=== PATIENT | female | born 1935 | race Caucasian/White ===

== ENCOUNTER 2016-09-26 00:21 | Inpatient (IN) | payer MEDICAID, OTHER ==
--- NOTE | 2016-09-26 00:33 | CPEKG ---
Heart Rate: 70 RR Interval: 857 P-R Interval: 156 QRSD Interval: 84 QT Interval: 396 QTC Interval: 428 QRS [place]: -1 T Wave [place]: 56 EKG Severity - ABNORMAL ECG - EKG Impression: ATRIAL-PACED RHYTHM Electronically Signed By: Tita gNuyen 26-Sep-2016 00:53:17
--- NOTE | 2016-09-26 00:34 | EDPHY ---
H & P Time Seen by Provider: 09/26/16 00:25 HPI/ROS: HPI The patient presents brought in by ambulance for chest pain which began at approximately 10:30 p.m. tonight while sitting after she drank some eat juice. The pain is described as a pressure sensation that she 1st felt in both of her arms, then her back, that her jaw, then her left chest. The pain has been constant and is moderate in severity. She has no associated shortness of breath , nausea, vomiting, diaphoresis or dizziness. She did take full-dose aspirin prior to arrival. She received a dose of nitroglycerin which did not affect her pain. She was admitted to the hospital in September of 2015 for jaw pain and paroxysmal atrial fibrillation. She had a normal evaluation then. Her last provocative testing was an exercise stress test performed in July of 2015 which was normal. REVIEW OF SYSTEMS Constitutional: No fever, no chills. Eyes: No discharge. ENT: No sore throat. Cardiovascular: No chest pain, no palpitations. Respiratory: No cough, no shortness of breath. Gastrointestinal: No abdominal pain, no vomiting. Genitourinary: No hematuria. Musculoskeletal: No back pain. Skin: No rashes. Neurological: No headache. PMHx: Paroxysmal atrial fibrillation, hypertension, pacer in place, not on any medication currently. Soc Hx: Lives at home, increased social stressors as she is trying to help her daughter get on medicaid PHYSICAL General Appearance: Alert, no distress Eyes: Pupils equal and round no pallor or injection ENT, Mouth: Mucous membranes moist Respiratory: There are no retractions, lungs are clear to auscultation Cardiovascular: Regular rate and rhythm Gastrointestinal: Abdomen is soft and non-tender, no masses, bowel sounds normal Neurological: A&O, moves all extremities Skin: Warm and dry, no rashes Musculoskeletal: Neck is supple non tender Extremities: symmetrical, full range of motion Psychiatric: Patient is oriented X 3, there is no agitation Source: Patient, EMS Exam Limitations: No limitations - Medical/Surgical History Hx Asthma: Yes Hx Chronic Respiratory Disease: No Hx Diabetes: No Hx Cardiac Disease: Yes Hx Renal Disease: No Hx Cirrhosis: No Hx Alcoholism: No Hx HIV/AIDS: No Hx Splenectomy or Spleen Trauma: No Other PMH: Atrial fibrillation, pacemaker, hypertension, ASTHMA, hysterectomy, prolapsed bladder, fibromyalgia - Social History Smoking Status: Never smoked Constitutional: Initial Vital Signs Temperature (C) 36.8 C 09/26/16 00:41 Heart Rate 65 09/26/16 00:41 Respiratory Rate 18 09/26/16 00:41 Blood Pressure 176/99 H 09/26/16 00:41 O2 Sat (%) 96 09/26/16 00:41 O2 Delivery Mode Room Air Allergies/Adverse Reactions: Sulfa (Sulfonamide Antibiotics) [Sulfa(Sulfonamide Antibiotics)] Allergy (Severe , Verified 09/14/15 14:42) sulindac Allergy (Verified 09/15/15 11:58) ? steroids Allergy (Uncoded 08/06/15 05:04) Home Medications: Medication Instructions Recorded Apixaban [Eliquis] 5 mg PO BID 09/14/15 Cyanocobalamin (Vitamin B-12) 1,000 mcg SL DAILY 09/14/15 [Vitamin B-12] Herbals/Supplements -Info Only 1 ea PO DAILY 09/14/15 Nebivolol HCl [Bystolic] 2.5 mg PO DAILY #30 tablet 09/15/15 Medical Decision Making - Diagnostics EKG Interpretation: EKG: Complete interpretation has been separately recorded in the [facility] archive. Summary impression: No ST segment elevation or depression Repeat EKG is unchanged from 1st. Imaging Results: Chest x-ray two views shows increased interstitial markings, no cardiomegaly, no effusion, interpreted by me, radiology interpretation is pending. Imaging: I viewed and interpreted images myself Differential Diagnosis: This is a 81-year-old female with history of paroxysmal AFib, hypertension, pacer in place who presents from home brought in by ambulance for an episode of chest pain which occurred at rest. She continues to have pain currently. Differential diagnosis includes ACS, GERD, PE, costochondritis, stress response. In the emergency room, I met the paramedics at the bedside to obtain their report. Patient does have pain now, though does not want any medication for it. EKG and chest x-ray are unremarkable. In the emergency room, the patient was monitored, she had no events on telemetry. She continued to have pain and was given a dose of Toradol. Repeat EKG was normal, however troponin became elevated. She had very minimal chest pain. Because of this, she will require admission. I have discussed the case with Dr. Mesa. I have also consulted with Cardiology and spoke to the OBIE Ward, he agrees with starting on heparin overnight. We will also start nitro for the patient's pain. - Data Points Laboratory Results: Laboratory Results 09/26/16 00:40 09/26/16 00:40 09/26/16 09/26/16 09/26/16 03:10 00:40 00:40 WBC 9.22 10^3/uL 10^3/uL (3.80-9.50) RBC 4.79 10^6/uL 10^6/uL (4.18-5.33) Hgb 14.9 g/dL g/dL (12.6-16.3) Hct 44.9 % % (38.0-47.0) MCV 93.7 fL fL (81.5-99.8) MCH 31.1 pg pg (27.9-34.1) MCHC 33.2 g/dL g/dL (32.4-36.7) RDW 13.2 % % (11.5-15.2) Plt Count 205 10^3/uL 10^3/uL (150-400) MPV 10.7 fL fL (8.7-11.7) Neut % (Auto) 49.2 % % (39.3-74.2) Lymph % (Auto) 35.5 % % (15.0-45.0) Mcdonald % (Auto) 10.0 % % (4.5-13.0) Eos % (Auto) 4.3 % % (0.6-7.6) Baso % (Auto) 0.7 % % (0.3-1.7) Nucleat RBC Rel Count 0.0 % % (0.0-0.2) Absolute Neuts (auto) 4.54 10^3/uL 10^3/uL (1.70-6.50) Absolute Lymphs (auto) 3.27 10^3/uL H 10^3/uL (1.00-3.00) Absolute Monos (auto) 0.92 10^3/uL H 10^3/uL (0.30-0.80) Absolute Eos (auto) 0.40 10^3/uL 10^3/uL (0.03-0.40) Absolute Basos (auto) 0.06 10^3/uL 10^3/uL (0.02-0.10) Absolute Nucleated RBC 0.00 10^3/uL 10^3/uL (0-0.01) Immature Gran % 0.3 % % (0.0-1.1) Immature Gran # 0.03 10^3/uL 10^3/uL (0.00-0.10) Sodium 141 mEq/L mEq/L (134-144) Potassium 4.6 mEq/L mEq/L (3.5-5.2) Chloride 106 mEq/L mEq/L (97-110) Carbon Dioxide 22 mEq/l mEq/l (22-31) Anion Gap 13 mEq/L mEq/L (8-16) BUN 16 mg/dL mg/dL (7-23) Creatinine 1.0 mg/dL mg/dL (0.6-1.0) Estimated GFR 53 Glucose 95 mg/dL mg/dL (70-100) Calcium 10.2 mg/dL mg/dL (8.5-10.4) Troponin I 0.284 ng/mL H ng/mL 0.021 ng/mL ng/mL (0-0.034) (0-0.034) Medications Given: Discontinued Medications Ketorolac Tromethamine (Toradol) 15 mg IVP ONCE ONE Stop: 09/26/16 01:37 Last Admin: 09/26/16 01:54 Dose: 15 mg Departure - Departure Disposition: [facility] Inpatient Acute Clinical Impression: Chest pain, Troponin level elevated Condition: Fair Referrals: Patient,NotPresent [Unknown] - As per Instructions
[2016-09-26 00:56] LABS: % IMMATURE GRANULYOCYTES 0.3 % (0.0-1.1); ABSOLUTE IMMATURE GRANULOCYTES 0.03 10^3/uL (0.00-0.10); ADD DIFF? NO; ADD MORPH? NO; ADD SCAN? NO; ATYPICAL LYMPHOCYTE FLAG 20 (0-99); FRAGMENT RBC FLAG 0 (0-99); HEMATOCRIT 44.9 % (38.0-47.0); HEMOGLOBIN 14.9 g/dL (12.6-16.3); LEFT SHIFT FLG 0 (0-99); LIPEMIA HEMOLYSIS FLAG 80 (0-99); MEAN CELL HEMOGLOBIN 31.1 pg (27.9-34.1); MEAN CELL HEMOGLOBIN CONCENTR. 33.2 g/dL (32.4-36.7); MEAN CELL VOLUME 93.7 fL (81.5-99.8); MEAN PLATELET VOLUME 10.7 fL (8.7-11.7); PLATELET CLUMPS FLAG 10 (0-99); PLATELET COUNT 205 10^3/uL (150-400); RED BLOOD CELL COUNT 4.79 10^6/uL (4.18-5.33); RED CELL DISTRIBUTION WIDTH 13.2 % (11.5-15.2)
[2016-09-26 00:59] LABS: ANION GAP 13 mEq/L (8-16); CALCIUM 10.2 mg/dL (8.5-10.4); CARBON DIOXIDE 22 mEq/l (22-31); CHLORIDE 106 mEq/L (97-110); GLOMERULAR FILTRATION RATE 53; GLUCOSE 95 mg/dL (70-100); POTASSIUM 4.6 mEq/L (3.5-5.2); SODIUM 141 mEq/L (134-144)
[2016-09-26 01:14] LABS: TROPONIN I 0.021 ng/mL (0-0.034)
[2016-09-26] MEDS ORDERED: KETOROLAC 15 MG/1 ML SDV ONE (01:36)
[2016-09-26] MEDS ORDERED: KETOROLAC 15 MG/1 ML SDV IVP ONE (01:36)
--- NOTE | 2016-09-26 02:53 | CPEKG ---
Heart Rate: 62 RR Interval: 968 P-R Interval: 140 QRSD Interval: 84 QT Interval: 416 QTC Interval: 423 P [place]: 36 QRS [place]: -12 T Wave [place]: 3 EKG Severity - NORMAL ECG - EKG Impression: SINUS RHYTHM Electronically Signed By: Kita Arzate 26-Sep-2016 22:50:55
[2016-09-26 03:41] LABS: TROPONIN I 0.284 ng/mL (0-0.034)
[2016-09-26] MEDS ORDERED: HEPARIN/DEXTROSE 500 ML IV ONE (04:09)
[2016-09-26] MEDS ORDERED: NITROGLYCERIN/DEXTROSE 250 ML IV SCH ×2 (04:30→05:00)
[2016-09-26] MEDS ORDERED: NITROGLYCERIN/D5W 50 MG/250 ML BOTTLE IV ONE (04:32)
[2016-09-26] MEDS ORDERED: HEPARIN 10,000 UNIT/10 ML MDV IVP PRN (04:32)
[2016-09-26] MEDS ORDERED: HEPARIN 10,000 UNIT/10 ML MDV IVP ONE (04:32)
[2016-09-26] MEDS ORDERED: ONDANSETRON DISINTEGRATING 4 MG TAB PO PRN (04:34)
[2016-09-26] MEDS ORDERED: ONDANSETRON 4 MG/2 ML VIAL IVP PRN (04:34)
[2016-09-26] MEDS ORDERED: oxyCODONE IR 5 MG TAB PO PRN (04:34)
[2016-09-26] MEDS ORDERED: ACETAMINOPHEN 325 MG TAB PO PRN (04:34)
[2016-09-26] MEDS ORDERED: HEPARIN/DEXTROSE 500 ML IV SCH (04:45)
[2016-09-26 05:34] LABS: % IMMATURE GRANULYOCYTES 0.2 % (0.0-1.1); ABSOLUTE IMMATURE GRANULOCYTES 0.02 10^3/uL (0.00-0.10); ADD DIFF? NO; ADD MORPH? NO; ADD SCAN? NO; ATYPICAL LYMPHOCYTE FLAG 0 (0-99); FRAGMENT RBC FLAG 0 (0-99); HEMATOCRIT 42.4 % (38.0-47.0); HEMOGLOBIN 14.6 g/dL (12.6-16.3); LEFT SHIFT FLG 0 (0-99); LIPEMIA HEMOLYSIS FLAG 90 (0-99); MEAN CELL HEMOGLOBIN 31.3 pg (27.9-34.1); MEAN CELL HEMOGLOBIN CONCENTR. 34.4 g/dL (32.4-36.7); MEAN PLATELET VOLUME 10.3 fL (8.7-11.7); PLATELET CLUMPS FLAG 10 (0-99); PLATELET COUNT 204 10^3/uL (150-400); RED BLOOD CELL COUNT 4.66 10^6/uL (4.18-5.33); RED CELL DISTRIBUTION WIDTH 12.9 % (11.5-15.2)
[2016-09-26 05:43] LABS: APTT 28.3 SEC (23.0-38.0); INR 1.02 (0.83-1.16); PROTIME(PATIENT) 13.3 SEC (12.0-15.0)
--- NOTE | 2016-09-26 06:03 | GHP ---
[f rep st] HISTORY AND PHYSICAL DATE OF ADMISSION: 09/26/2016 CHIEF COMPLAINT: Chest pain. HISTORY OF PRESENT ILLNESS: This is a 81-year-old female with a history of atrial fibrillation, who presents with chest pain. This started about 10:30 p.m. It was initially associated with bilateral arm pain and tingling as well as some what she describes as tightness across her chest. It radiated up into her right jaw. She said that the pain itself has gotten better with ambulation , though her daughter notes this evening she has been quite dyspneic while ambulating. She tells me after she stops ambulating that she is unable to catch her breath. She has had chest pain in the past and has had essentially negative workups previously. She had a nuclear stress test in July of 2015, which showed no ischemia or infarct and a normal EF. She had a pacemaker placed in July of 2015 for atrial fibrillation and sick sinus syndrome. She was discharged on Eliquis; however, she says she did not tolerate this well and discontinued it. It is unclear exactly in what fashion she did not tolerate it ; however, she did not have any significant bleeding events. She also did not tolerate metoprolol. She has been taking beet juice to thin her blood, garlic as needed, and occasionally takes aspirin. In the emergency department, she did receive an aspirin. Initial troponin was within the normal range. Followup troponin was 0.284. PAST MEDICAL/SURGICAL HISTORY: 1. Atrial fibrillation. 2. Sick sinus syndrome status post pacemaker. 3. Asthma. 4. Hypertension. 5. Bladder prolapse. 6. DJD. 7. Carbon monoxide exposure in 2014 to which she attributes most of her ongoing medical problems. MEDICATIONS: Please see medication reconciliation. ALLERGIES: Sulfa, sulindac, and possibly steroids. FAMILY HISTORY: No heart disease. SOCIAL HISTORY: She does not drink or smoke. REVIEW OF SYSTEMS: A 10-point review of systems is conducted and is negative except per HPI. PHYSICAL EXAM: VITAL SIGNS: Blood pressure 171/96, heart rate 80, respiration rate 22, saturating 95% on room air, temperature is 36.8. GENERAL: Ms. Anderson is a very pleasant female, who is accompanied by her daughter. No acute distress. HEENT: Shows her to be normocephalic, atraumatic. CARDIOVASCULAR: Regular rate and rhythm. No murmurs, rubs, or gallops. She has trace bilateral lower extremity pitting edema. PULMONARY: Lungs clear to auscultation bilaterally. She is not in a respiratory distress when I am seeing her. ABDOMINAL EXAM: Soft, nontender, nondistended. SKIN: No rash. EXAM: No Morris. NEUROLOGIC: Shows her to be alert and oriented x3. She is moving all extremities. PSYCHIATRIC: Shows a normal mood and affect. LABS: Initial troponin was 0.021. Followup troponin about 2-1/2 hours later was 0.284. Otherwise, basic metabolic panel is normal. CBC is normal. DATA: 1. I discussed this with Dr. Nguyen. 2. EKG, which I personally viewed and interpreted, shows initial EKG was in atrial paced rhythm. There is nothing acutely ischemic. Her subsequent EKG showed sinus rhythm. Q-wave inversions in leads 3 and aVF. There are no ST changes. 3. Chest x-ray, which I personally reviewed and interpreted, shows pacemaker in the left chest. One 1 lead is positioned in the atrium, the other is in the right ventricle. Cardiac size is normal. IMPRESSION AND PLAN: A 81-year-old female with chest pain, elevated troponin/ non-ST elevated myocardial infarction. 1. Non-ST elevation myocardial infarction: Cardiology has been consulted by the emergency department. Agree with aspirin she received, initiation of intravenous heparin as well as intravenous nitroglycerin. She still has mild chest discomfort. She is also hypertensive. Anticipate cardiac catheterization. We will check another troponin in about an hour and a half. She will be placed on telemetry and admitted to the PCU. 2. Atrial fibrillation/sick sinus syndrome status post pacemaker: She has not been on anticoagulation. She has also not tolerate a beta charito. We will defer to Cardiology on management of this. 3. Hypertension: She is currently hypertensive. This will be managed with nitroglycerin in the short term. 4. Asthma: Does not appear to have any acute exacerbation. 5. Carbon monoxide exposure in 2015: She attributes most of her symptoms to this. 6. Code status: She would like to be full code, full tube. /[id number]/MODL MTDD
[2016-09-26] MEDS ORDERED: LIDOCAINE 1% 300 MG/30 ML SDV ONE (10:44)
[2016-09-26] MEDS ORDERED: IOPAMIDOL (ISOVUE-370) 150 ML BTL IV ONE ×2 (10:44→12:13)
[2016-09-26] MEDS ORDERED: MIDAZOLAM 2 MG/2 ML VIAL ONE ×2 (10:44→11:55)
[2016-09-26] MEDS ORDERED: fentaNYL 100 MCG/2 ML INJ ONE ×2 (10:44→11:55)
--- NOTE | 2016-09-26 10:51 | ECHO ---
[id number] + + [phone] : : [place] [address] : : [phone] + Adult Echocardiographic Report + ------+ :Name: MARA CH Tuyet Date: 09/26/2016 10:00 AM : : Hospital Admission Number: [id number] Locatio n: 206: :: 1935 Gender: Female Height: 64 in : :Age: 81 yrs Race: WH Weight: 166 lb : :Reason For Study: Chest Pain : : BSA: 1.8 meters 2 : + ------+ MMode/2D Measurements \T\ Calculations RVDd: 2.8 cm LVLd ap4: 7.2 cm SV(MOD-sp4): 39.0 ml EDV(MOD-sp4): 60.0 ml LVLs ap4: 6.3 cm ESV(MOD-sp4): 21.0 ml EF(MOD-sp4): 65.0 % Normal Measurement Values: + + :LVIDd (3.5-5.7cm) IVSd (0.6-1.1cm) LVPWd (0.6-1.1cm) Aortic Root (2.0-3.7cm)Left Atrium (1.5-4.0cm): :LV Vol(d) (76-115ml) LV Vol(s) (29-48ml) Ejec Fraction (50-65%)PV Param (0.6- 1.2m/s) TV Param (0.4-1.0m/s) : :MV E Param (0.8-1.0m/s)MV A Param (0.3-1.0m/s)LVOT Param (0.7-1.2m/s) Asc Ao Param ( 0.9-1.8m/s) : + + Doppler Measurements \T\ Calculations MV E max param: MV V2 mean: Ao mean PG: LV V1 max: 128.8 cm/sec 79.9 cm/sec 2.9 mmHg 82.4 cm/sec MV A max param: MV mean PG: Ao V2 mean: LV V1 max P.8 cm/sec 2.9 mmHg 79.7 cm/sec 2.7 mmHg MV E/A: 1.4 MV V2 VTI: 31.5 cm Ao V2 VTI: 25.8 cmLV V1 mean PG: MV dec time: 1.5 mmHg 0.23 sec LV V1 mean: 58.9 cm/sec LV V1 VTI: 19.9 cm PA V2 max: TR max param: 78.2 cm/sec 301.9 cm/sec PA max P.4 mmHg TR max P.5 mmHg Left Ventricle The left ventricle is normal in size. Ejection Fraction = 62%. There is Doppler evidence for diastolic dysfunction. Apical hypokinesis. Right Ventricle The right ventricle is normal in size and function. There is a pacemaker lead in the right ventricle. Atria The left atrial size is normal. Right atrial size is normal. The interatrial septum is intact with no evidence for an atrial septal defect. Mitral Valve The mitral valve is normal in structure and function. There is no mitral valve stenosis. There is mild mitral regurgitation. Tricuspid Valve The tricuspid valve is normal in structure and function. There is no tricuspid stenosis. There is moderate tricuspid regurgitation. Right ventricular systolic pressure is 44mmHg. Aortic Valve The aortic valve is not well visualized. There is no aortic stenosis. There is no aortic insufficiency. Pulmonic Valve The pulmonic valve is not well visualized. Great Vessels The aortic root is normal size. Pericardium/Pleural There is a fat pad seen. There is no pericardial effusion. External compressing of LV. Best visualized in Apical 4 and Apical 2. Conclusion A complete two-dimensional transthoracic echocardiogram was performed (2D, M-mode, Doppler and color flow Doppler). Ejection Fraction = 62%. There is Doppler evidence for diastolic dysfunction. There is a pacemaker lead in the right ventricle. There is mild mitral regurgitation. There is moderate tricuspid regurgitation. Right ventricular systolic pressure is 44mmHg. The aortic valve is not well visualized. Apical hypokinesis. Final Reading Physician: Dianna Banks signed on 09/26/2016 10:50 AM Ordering Physician: Tod Mesa Performed By: Jenifer Obrien
[2016-09-26] MEDS ORDERED: methylPREDNISolone SOD SUCC 125 MG/2 ML VIAL ONE (11:09)
[2016-09-26] MEDS ORDERED: FAMOTIDINE 20 MG/NACL/50 ML BAG IV ONE (11:09)
[2016-09-26] MEDS ORDERED: HEPARIN 10,000 UNIT/10 ML MDV ONE (11:46)
[2016-09-26] MEDS ORDERED: CLOPIDOGREL BISULFATE 75 MG TAB ONE (12:15)
[2016-09-26] MEDS ORDERED: ATROPINE SULFATE 1 MG/10 ML SYR IVP PRN (12:35)
[2016-09-26] MEDS ORDERED: CLOPIDOGREL BISULFATE 75 MG TAB PO ONE (12:35)
--- NOTE | 2016-09-26 13:01 | CPEKG ---
Heart Rate: 63 RR Interval: 952 P-R Interval: 164 QRSD Interval: 90 QT Interval: 492 QTC Interval: 504 QRS [place]: -39 T Wave [place]: -14 EKG Severity - ABNORMAL ECG - EKG Impression: ATRIAL-PACED RHYTHM EKG Impression: LEFT AXIS DEVIATION EKG Impression: NONSPECIFIC T ABNORMALITIES, ANTERIOR LEADS EKG Impression: BORDERLINE PROLONGED QT INTERVAL Electronically Signed By: Tita Nguyen 27-Sep-2016 02:00:16
--- NOTE | 2016-09-26 13:08 | CPIP ---
[f rep st] INVASIVE CARDIAC PROCEDURE PROCEDURES: 1. Left heart catheterization. 2. Left ventriculogram. 3. Right and left coronary arteriogram. CONSENT: The patient gave informed consent for a coronary angiogram and stent as needed. She understood the risks and the options and agreed and wanted to proceed. She did not want to take any other diagnostic approach at this time. PROCEDURE FINDINGS: CORONARY ANGIOGRAPHY: Left main coronary artery normal. Left anterior descending artery has 20% proximal disease and then 40% mid disease, some more disease distal to that is not as high grade. The circumflex coronary artery has ostial 20% stenosis and then the proximal circ has 45% stenosis. There is a large OM1 and then the distal circ has intimal disease present. The right coronary artery has ostial 80% stenosis with decreased flow and dampening when the cathete r is engaged. LEFT HEART CATHETERIZATION: Left ventricular end-diastolic pressure of 15 mmHg. Left Ventriculogram: Normal left ventricular chamber dimension. Normal left ventricular systolic f unction. Normal wall motion and no severe mitral regurgitation. The patient has no findings to suggest aortic stenosis. COMPLICATIONS: None. The case was discussed with the patient and with her daughter. All the daughter's questions were an swered. The patient was quite groggy at the time. We will follow the patient. The patient is going on to have PCI, which has actually been accomplished by now successfully of the proximal ostial right coronary artery. The patient has been on Eliquis for atrial fibrillation. She is going to end up on low-dose aspirin , Plavix, and Eliquis. /[id number]/MODL
[2016-09-26] MEDS ORDERED: METOPROLOL TARTRATE 25 MG TAB PO PRN (13:29)
--- NOTE | 2016-09-26 13:33 | CPIP ---
[f rep st] INVASIVE CARDIAC PROCEDURE DATE OF PROCEDURE: 09/26/2016 PROCEDURE: 1. Coronary angiography. 2. Stenting of right coronary artery with Synergy drug-eluting stent. INDICATION: Acute coronary syndrome with elevated troponin. ACCESS AND CORONARY ANGIOGRAPHY: Access and coronary angiography was performed by Dr. Delvin najera. Coronary angiography was notable for a 75%-80% stenosis of the ostial right coronary artery with damping. I was consulted to perform percutaneous coronary intervention on this vessel. PERCUTANEOUS CORONARY INTERVENTION OF RIGHT CORONARY ARTERY: A 6-Fris[place] 3DRC catheter was advanced to the right coronary artery and images obtained. Angiography demonstrated a focal 75%-80% stenosis of the ostial right coronary artery. There was damping with guide catheter engagement. A Luge wir e was then advanced into the distal vessel and position verified by angiography. A 3.0 x 12 Synergy drug-eluting stent was then placed into the ostial lesion, extended into the aorta by half a stent and deployed. Followup angiography demonstrated incomplete stent expansion with CELIA 3 f low. The stent was post dilated with a 3.5 x 8 Noncompliant Emerge balloon. Followup angiography d emonstrated no residual stenosis and CELIA 3 flow. COMPLICATIONS: None. CONCLUSIONS: 1. Single-vessel coronary artery disease involving the ostial right coronary artery. 2. Status post successful stenting of the right coronary artery with Synergy drug-eluting stent. /[id number]/MODL
--- NOTE | 2016-09-26 13:44 | GCON ---
[f rep st] CONSULTATION CARDIOLOGY CONSULTATION DIAGNOSIS: Chest discomfort. HISTORY AND PHYSICAL: The patient has noted last night that she developed chest discomfort. It was after she took a drink of a liquid and it bothered her in both arms, it bothered her in her chest a nd into her back. Then the discomfort went away. She came to the emergency room, had a little pain on and off, but she noted that whenever she would walk her pain was relieved. She has not had this pain before. A year ago, her cardiac history includes according to her, having a heart attack due to carbon monoxide. Less than a year ago, she felt lightheaded and dizzy, came into the hospital, h ad a negative nuclear stress test and went on to the labor conciliator to have a pacemaker placed for sick si nus syndrome. She had atrial fibrillation at that time. She has been given a bunch of medications to help her atr ial fibrillation and she is convinced that her medications made her worse, and for that reason, she did not take any of the medications. She had been taking her Eliquis. She had been taking her mikayla min B. She had been taking her Bystolic. When she came to the hospital, she stopped Bystolic and her Eliquis was held. She put on a heparin protocol. She does not have a history of atrial fibrillation symptoms lately. No ventricular arrhy thmias. No rheumatic disease, claudication, cerebrovascular disease. She has no history of orthopn ea, PND, dyspnea on exertion. No history of deep venous thrombosis that she is aware of. The recor d states that in the past she has had a pulmonary embolism, but she says that is not true. She has no hot, swollen joints, no major rashes, no photophobia, stiff neck, sore throat. No trauma to the head, neck, or chest. She has not had any pleuritic symptoms. She is not having blurred vision, di zziness, lightheadedness, syncope or near syncope. She is not having any cranial neuropathies. She does not have swollen lower extremities or trauma to the lower extremities or recent long travel or immobility. She has been taking her medications and doing quite well on that, not having any other problems with them, and she says she has not been bleeding excessively. We do know that her cardia c risk factors are negative for hypertension, diabetes, hyperlipidemia, hyperuricemia, smoking histo ry, family history of premature coronary disease, obesity. She has never had a stent or bypass surg leela or any other cardiovascular surgery. Her pacemaker has been checked and is doing very well. REVIEW OF SYSTEMS: A 12-point review of systems negative except as noted above. Also she has a his tory of asthma. PAST SURGICAL HISTORY: Prolapsed bladder, procedures or devices for that. Fibromyalgia. Hysterect susana. FAMILY HISTORY: No family history of premature coronary disease. No history of unexplained sudden at a young age. ALLERGIES: Sulfa and she says maybe she has a question of an allergy to steroids. MEDICATIONS: Her medications normally that we think she was taking were Eliquis, vitamin B, herbs, and Bystolic 2.5 daily. STUDIES: Chest x-ray shows the changes of the pacemaker. SOCIAL HISTORY: She was born in [place], [place]. She lives with herself and her daughter. Breonna lazcano does not smoke. She does not drink significant amounts of alcohol. Usually she is quite active. She is very involved in her health and is very versed in healthcare issues. PHYSICAL EXAM: VITALS: Blood pressure is 125/70, heart rate 66, respiratory rate 12. She is afebr ile. HEENT: Pupils equal and reactive. Mucous membranes of mouth moist. NECK: Supple. CARDIOVA SCULAR: S1-S2, soft systolic murmur left sternal border. No diastolic murmur. No S3, S4, no rubs. PULMONARY: Rhonchi, no rales, wheezing, or dullness. ABDOMEN: Soft, nontender, without masses. EXTREMITIES: No edema, inflammation, or ulceration. NEUROLOGIC: Cranial nerves 2-12 grossly norm al. Motor and sensory intact. PSYCH: No obvious anxiety or depression. SKIN: Age-related change s. LABORATORY DATA: Her D-dimer is up at 1.17. Her pro time and PTT are acceptable. Sodium 141, pota ssium 4.6, chloride 106, CO2 22, BUN 16, creatinine 1.0. Troponin was 0.02, then 0.28, and then 1.1 5. White count 9.4, hematocrit 42, platelets 204. Electrocardiograph shows terminal T-wave inversi on in III and then T-wave inversion in III and AVF. ASSESSMENT/PLAN: 1. Non ST elevation myocardial infarction. 2. Coronary artery disease. 3. Dyslipidemia. 4. Hypertension. 5. Question of history of pulmonary embolism. The patient's record says she has had a pulmonary em bolism in the past, but she denies that. Her troponin is elevated and her D-dimer is elevated. 6. At this time, she has evolving EKG changes for possible inferior ischemia and troponin elevation consistent with a non ST-segment elevation myocardial infarction. We will take her to the labor conciliator . She knows the risks to include stroke, , limb loss, renal failure, myocardial infarction, in fection, bleeding, etc., and she knows all the options I went over with her, getting more opinions, observation, medical therapy, noninvasive testing, nontraditional methods, etc., and what she would like to do is to proceed with coronary angiography. I think that is a very intelligent thing to do at this point in time. So, we will do that and watch her very carefully. If we find coronary disea se and make this diagnosis, which I think is what we are going to do, we will put her on aspirin, an tiplatelet medication, switch her to an KAI inhibitor, put her on a beta charito. Because of a ques tion of an elevated D-dimer, keep her on heparin or resume her Eliquis once her groin is stable. I have answered all her questions. We have talked about prevention. 7. Pacemaker. Her pacemaker seems to be functioning well. I do not see any complications from lane t. 8. Asthma. She has a long-standing history of asthma and that is not acting up or changing anythin g right this minute. 9. We will watch her very closely. If she does not have obstructive coronary disease, we will be v leela aggressive about looking for other causes. However, with her EKG changes and risk factors of at least hypertension, which she has herself denied having, that is why it says above that she has no hypertension, but the record states she does and she is being treated for it, so we are going to mandeep ch her blood pressure, treat her for that, and treat her for what presumably will rim turning finisher to be cor onary disease. 10. There is nothing right now to suggest gastrointestinal pathology or other major pulmonary patho logy as a cause for her pain. 11. There is nothing to suggest disease of the great vessels. She has pulses that are full and equ al. 12. We will get an echocardiographic study, but I do not suspect pericardial or valvular disease ca using her current symptoms. 13. I have talked to her daughter. /[id number]/MODL
--- NOTE | 2016-09-26 14:12 | HOSPPROG ---
Hospitalist Progress Note Assessment/Plan: Pt seen and examined. S/p stent to RCA. doing well post-procedure Objective: Vital Signs Temp Pulse Resp BP Pulse Ox 36.4 C 59 L 16 139/78 H 93 09/26/16 13:35 09/26/16 13:35 09/26/16 13:35 09/26/16 13:35 09/26/16 13:35 Laboratory Results 09/26/16 05:20 09/25/16 09/26/16 09/27/16 05:59 05:59 05:59 Intake Total 0 450 Output Total 0 Balance 0 450 PT 13.3 SEC (12.0-15.0) 09/26/16 05:20 INR 1.02 (0.83-1.16) 09/26/16 05:20 ICD10 Worksheet Patient Problems: Problems Problem Status Onset Chest pain Acute Troponin level elevated Acute Atrial fibrillation Acute Jaw pain Acute Palpitations Acute Pulmonary embolism Acute Wound infection after surgery Acute
[2016-09-26] MEDS: ATORVASTATIN CALCIUM 40 MG TAB PO SCH (18:16)
[2016-09-26] MEDS: BISOPROLOL FUMARATE 5 MG TAB PO SCH (22:56)
[2016-09-27 00:24] VITALS: TEMP 98.1
[2016-09-27 04:21] LABS: % IMMATURE GRANULYOCYTES 0.9 % (0.0-1.1); ABSOLUTE IMMATURE GRANULOCYTES 0.12 10^3/uL (0.00-0.10); ADD DIFF? NO; ADD MORPH? NO; ADD SCAN? NO; ATYPICAL LYMPHOCYTE FLAG 0 (0-99); FRAGMENT RBC FLAG 0 (0-99); HEMOGLOBIN 12.8 g/dL (12.6-16.3); LEFT SHIFT FLG 10 (0-99); LIPEMIA HEMOLYSIS FLAG 80 (0-99); MEAN CELL HEMOGLOBIN 30.9 pg (27.9-34.1); MEAN CELL HEMOGLOBIN CONCENTR. 33.7 g/dL (32.4-36.7); MEAN CELL VOLUME 91.8 fL (81.5-99.8); MEAN PLATELET VOLUME 11.1 fL (8.7-11.7); PLATELET CLUMPS FLAG 0 (0-99); PLATELET COUNT 194 10^3/uL (150-400); RED BLOOD CELL COUNT 4.14 10^6/uL (4.18-5.33)
--- NOTE | 2016-09-27 04:53 | CPEKG ---
Heart Rate: 61 RR Interval: 984 P-R Interval: 154 QRSD Interval: 90 QT Interval: 508 QTC Interval: 512 P [place]: 41 QRS [place]: -28 T Wave [place]: -75 EKG Severity - ABNORMAL ECG - EKG Impression: ATRIAL-PACED COMPLEXES EKG Impression: BORDERLINE LEFT AXIS DEVIATION EKG Impression: ABNORMAL T, CONSIDER ISCHEMIA, DIFFUSE LEADS EKG Impression: PROLONGED QT INTERVAL Electronically Signed By: Jm De Leon 27-Sep-2016 19:39:48
[2016-09-27 04:58] LABS: ANION GAP 10 mEq/L (8-16); CALCIUM 9.4 mg/dL (8.5-10.4); CARBON DIOXIDE 19 mEq/l (22-31); CHLORIDE 107 mEq/L (97-110); GLOMERULAR FILTRATION RATE 53; GLUCOSE 138 mg/dL (70-100); POTASSIUM 4.8 mEq/L (3.5-5.2); SODIUM 136 mEq/L (134-144)
[2016-09-27] MEDS: BISOPROLOL FUMARATE 5 MG TAB PO SCH (08:25)
[2016-09-27] MEDS: ATORVASTATIN CALCIUM 40 MG TAB PO SCH (08:28)
[2016-09-27 08:32] VITALS: BP 130/67
[2016-09-27 08:53] VITALS: PULSE 63; RESP 18; O2SAT 94
[2016-09-27] MEDS ORDERED: NON-FORMULARY NEW DRUG (Cyanocobalamin (Vitamin B-12) [Vitamin B-12] 1,000 MCG) SL SCH (09:00)
[2016-09-27] MEDS ORDERED: CYANO/VITAMIN B12 1000 MCG TAB PO SCH (09:00)
[2016-09-27] MEDS ORDERED: ASPIRIN EC 325 MG TAB PO SCH (09:00)
[2016-09-27] MEDS ORDERED: CLOPIDOGREL BISULFATE 75 MG TAB PO SCH (09:00)
--- NOTE | 2016-09-27 11:19 | GDS ---
[f rep st] DISCHARGE SUMMARY DISCHARGE DIAGNOSES: 1. Non-Q-wave myocardial infarction. 2. Status post stent to right coronary artery. 3. History of atrial fibrillation. 4. Sick sinus syndrome, status post pacemaker. 5. Asthma. 6. Hypertension. HISTORY: This is a 81-year-old female, who presented with chest pain. HOSPITAL COURSE: Patient did have elevated troponin that peaked around 1. She then underwent angio gram, which showed right coronary artery ostial lesion that was stented. She is doing well post paulette nt and will be discharged home today. DISPOSITION: Home. DISCHARGE MEDICATIONS: She is instructed to discontinue her metoprolol that she takes as needed and to start bisoprolol, Plavix, aspirin, and Lipitor. FOLLOWUP INSTRUCTIONS: She is instructed to follow up with her lead massage therapist in 1-2 weeks. /[id number]/MODL
[2016-09-27] MEDS ORDERED: LISINOPRIL 2.5 MG TAB PO SCH (22:00)
== END 2016-09-27 11:25 | disposition home or self-care (01) | DRG 247 ==
LOC: EDUNIT# → OBSVTOIN 04:34 → F2W 05:47
PROVIDERS: ADMIT Student in an Organized Health Care Education/Training Program; ATTEND Student in an Organized Health Care Education/Training Program
PROC: 027034Z Dilation of Coronary Artery, One Artery with Drug-eluting Intraluminal Device, Percutaneous Approach (ICD-10-PCS; principal; 2016-09-26 12:28)
PROC: 4A023N7 Measurement of Cardiac Sampling and Pressure, Left Heart, Percutaneous Approach (ICD-10-PCS; principal; 2016-09-26 12:28)
PROC: B2151ZZ Fluoroscopy of Left Heart using Low Osmolar Contrast (ICD-10-PCS; principal; 2016-09-26 12:28)
PROC: B2111ZZ Fluoroscopy of Multiple Coronary Arteries using Low Osmolar Contrast (ICD-10-PCS; principal; 2016-09-26 12:28)
DX: I21.3 ST elevation (STEMI) myocardial infarction of unspecified site (principal); J45.909 Unspecified asthma, uncomplicated; I10 Essential (primary) hypertension; Z95.0 Presence of cardiac pacemaker; E78.5 Hyperlipidemia, unspecified
CPT/HCPCS: 85520-90; 96374; C1725; C1760; C1874; C1887; C9600; J1200; J1644; J1885; J2250; J3010; Q9967

== ENCOUNTER 2017-06-01 18:24 | Emergency (ER) | payer OTHER ==
[2017-06-01] MEDS ORDERED: NS 1,000 ML IV ONE (18:36)
--- NOTE | 2017-06-01 18:41 | EDPHY ---
H & P Stated Complaint: slurred speech and right arm weakness at 1600hrs Time Seen by Provider: 06/01/17 18:29 HPI/ROS: CHIEF COMPLAINT: CVA HISTORY OF PRESENT ILLNESS: The patient is an 82-year-old female with a history of pacemaker and previous CVA who saw her doctor this afternoon and for check up. When she got home around 4 o'clock she was talking to her daughter on the phone and her daughter noticed significant mumbling and slurred speech. The patient noticed some droopy right face and some funny feelings in her right arm. This is similar to her previous stroke in 2008 but that had completely resolved. EMS was called. When they arrived they state that she had some slurred speech but her symptoms seem to improve and they suspected TIA. Here on my exam however she has significant slurred speech and right-sided facial droop in a pronator drift in the right arm. She denies headache. She denies trauma. Her glucose was normal. She does not take blood thinners. REVIEW OF SYSTEMS: Constitutional: denies: chills, fever, recent illness, recent injury EENTM: denies: blurred vision, double vision, nose congestion Respiratory: denies: cough, shortness of breath Cardiac: denies: chest pain, irregular heart rate, lightheadedness, palpitations Gastrointestinal/Abdominal: denies: abdominal pain, diarrhea, nausea, vomiting, blood streaked stools Genitourinary: denies: dysuria, frequency, hematuria, pain Musculoskeletal: denies: joint pain, muscle pain Skin: denies: lesions, rash, jaundice, bruising Neurological: See HPI Hematologic/Lymphatic: denies: blood clots, easy bleeding, easy bruising Immunologic/allergic: denies: HIV/AIDS, transplant EXAM: GENERAL: Well-appearing, well-nourished and in no acute distress. HEAD: Atraumatic, normocephalic. EYES: Pupils equal round and reactive to light, extraocular movements intact, sclera anicteric, conjunctiva are normal. ENT: TMs normal, nares patent, oropharynx clear without exudates. Moist mucous membranes. NECK: Normal range of motion, supple without lymphadenopathy or JVD. LUNGS: Breath sounds clear to auscultation bilaterally and equal. No wheezes rales or rhonchi. HEART: Regular rate and rhythm without murmurs, rubs or gallops. ABDOMEN: Soft, nontender, normoactive bowel sounds. No guarding, no rebound. No masses appreciated. BACK: No CVA tenderness, no spinal tenderness, step-offs or deformities EXTREMITIES: Normal range of motion, no pitting or edema. No clubbing or cyanosis. NEUROLOGICAL: Right-sided facial droop, tongue midline. Slurred speech, pronator drift on the right, normal cerebellar exam, normal gait. 5/5 strength , normal movement in all extremities, normal sensation NIH stroke score 3 PSYCH: Normal mood, normal affect. SKIN: Warm, dry, normal turgor, no visible rashes or lesions. Source: Patient Exam Limitations: No limitations - Personal History Current Tetanus/Diphtheria Vaccine: Unsure Current Tetanus Diphtheria and Acellular Pertussis (TDAP): Unsure - Medical/Surgical History Hx Asthma: Yes Hx Chronic Respiratory Disease: No Hx Diabetes: No Hx Cardiac Disease: Yes Hx Renal Disease: No Hx Cirrhosis: No Hx Alcoholism: No Hx HIV/AIDS: No Hx Splenectomy or Spleen Trauma: No Other PMH: Atrial fibrillation, pacemaker, hypertension, ASTHMA, hysterectomy, prolapsed bladder, fibromyalgia, CVA 2008 - Family History Significant Family History: No pertinent family hx - Social History Smoking Status: Never smoked Alcohol Use: Sober Drug Use: None Constitutional: Initial Vital Signs Temperature (C) 36.7 C 06/01/17 18:24 Heart Rate 78 06/01/17 18:24 Respiratory Rate 16 06/01/17 18:24 Blood Pressure 166/78 H 06/01/17 18:24 O2 Sat (%) 98 06/01/17 18:24 O2 Delivery Mode Room Air Allergies/Adverse Reactions: Sulfa (Sulfonamide Antibiotics) [Sulfa(Sulfonamide Antibiotics)] Allergy (Severe , Verified 06/01/17 18:31) sulindac Allergy (Verified 06/01/17 18:31) ? steroids Allergy (Uncoded 06/01/17 18:31) Home Medications: Medication Instructions Recorded Cyanocobalamin (Vitamin B-12) 1,000 mcg SL DAILY 09/14/15 [Vitamin B-12] Herbals/Supplements -Info Only 1 ea PO DAILY 09/14/15 Aspirin [Aspirin 81mg (*)] 81 mg PO DAILY #1 tab 09/27/16 Atorvastatin Calcium [Lipitor 40 40 mg PO DAILY #30 tab 09/27/16 mg (*)] Bisoprolol Fumarate [Zebeta (*)] 5 mg PO DAILY #30 tab 09/27/16 Clopidogrel Bisulfate [Plavix (*)] 75 mg PO DAILY #30 tab 09/27/16 Lisinopril [Zestril 2.5 mg (*)] 2.5 mg PO DAILY #30 tab 09/27/16 Medical Decision Making - Diagnostics EKG Interpretation: An EKG obtained and was read and documented in trace view. Please see trace view for full reading and report. Sinus rhythm, no acute ischemic changes Imaging: Discussed imaging studies w/ call center support consultant Radiologist ED Course/Re-evaluation: 7:27 p.m. International Units return to the room multiple times to speak with the patient and her family as well as Neurology from [place] Dr. Au. The patient is not a tPA candidate because she has been taking Eliquis although intermittently for history of atrial fibrillation. She does however have a left MCA clot at the trifurcation. Dr. Au recommends transfer to [facility] for thrombolysis. Family agrees. We have called for transport. Differential Diagnosis: Partial list of the Differential diagnosis considered include but were not limited to; CVA, dissection, TIA and although unlikely based on the history and physical exam, I also considered electrolyte abnormality, infection, trauma. Critical Care Time: Critical care time spent by me, Dr. Rodriguez exclusive with this patient was 45 minutes, exclusive of the PA time exclusive of procedures. The organ system that was at risk was neurologic and I gave IV fluids, imaging, consultation and transfer to prevent worsening of the patient's condition - Data Points Laboratory Results: Laboratory Results 06/01/17 19:10 06/01/17 19:10 Medications Given: Discontinued Medications Alteplase, Recombinant (Activase) 6.02030 mg 0.09 mg/kg (6.43328 mg) IV ONCE ONE PRN Reason: Protocol Stop: 06/01/17 19:13 Last Admin: 06/01/17 19:27 Dose: Not Given Alteplase, Recombinant (Activase) 55.53804 mg 0.81 mg/kg (55.69487 mg) IV ONCE ONE PRN Reason: Protocol Stop: 06/01/17 19:13 Last Admin: 06/01/17 19:27 Dose: Not Given Sodium Chloride (Ns) 1,000 mls @ 0 mls/hr IV ONCE ONE; Wide Open PRN Reason: Protocol Stop: 06/01/17 18:37 Last Admin: 06/01/17 19:09 Dose: 1,000 mls Sodium Chloride (Ns) 50 mls @ 0 mls/hr IV EDNOW ONE PRN Reason: Per Protocol Stop: 06/01/17 19:13 Last Admin: 06/01/17 19:28 Dose: Not Given Departure - Departure Disposition: Acute Care Hospital [facility] Clinical Impression: Acute ischemic stroke Condition: Critical Referrals: Patient,NotPresent [Unknown] - As per Instructions
[2017-06-01] MEDS ORDERED: IOPAMIDOL (ISOVUE 370) 100 ML BTL IV ONE (18:46)
[2017-06-01 19:01] LABS: INR 0.99 (0.83-1.16); PROTIME(PATIENT) 13.3 SEC (12.0-15.0)
--- NOTE | 2017-06-01 19:11 | CPEKG ---
Heart Rate: 83 RR Interval: 723 P-R Interval: 144 QRSD Interval: 86 QT Interval: 396 QTC Interval: 466 P [place]: 52 QRS [place]: -9 T Wave [place]: 15 EKG Severity - NORMAL ECG - EKG Impression: SINUS RHYTHM Electronically Signed By: Nadeem Rodriguez 01-Jun-2017 19:15:12
[2017-06-01] MEDS ORDERED: ALTEPLASE 100 MG/100 ML VIAL IV ONE (19:12)
[2017-06-01] MEDS ORDERED: ALTEPLASE 1 MG/ML SYR IV ONE (19:12)
[2017-06-01] MEDS ORDERED: NS 50 ML IV ONE (19:12)
[2017-06-01 19:20] VITALS: RESP 18
[2017-06-01 19:20] LABS: PLATELET COUNT 185 10^3/uL (150-400)
[2017-06-01 19:40] VITALS: BP 129/73; TEMP 98.8
[2017-06-01 19:59] VITALS: PULSE 78; O2SAT 95
== END 2017-06-01 19:54 | disposition short-term general hospital (02) ==
LOC: EDUNIT#
DX: I63.9 Cerebral infarction, unspecified (principal); J45.909 Unspecified asthma, uncomplicated; I10 Essential (primary) hypertension; E86.9 Volume depletion, unspecified; Z79.82 Long term (current) use of aspirin; Z95.0 Presence of cardiac pacemaker
CPT/HCPCS: 70450; 70496; 70498; 93005; 96360; 99291; Q9967; 82947-QW

== ENCOUNTER 2017-08-18 11:16 | Emergency (ER) | payer OTHER ==
--- NOTE | 2017-08-18 11:27 | EDPHY ---
H & P Stated Complaint: afib Time Seen by Provider: 08/18/17 11:26 - Personal History Current Tetanus/Diphtheria Vaccine: Yes - Medical/Surgical History Hx Asthma: Yes Hx Chronic Respiratory Disease: No Hx Diabetes: No Hx Cardiac Disease: Yes Hx Renal Disease: No Hx Cirrhosis: No Hx Alcoholism: No Hx HIV/AIDS: No Hx Splenectomy or Spleen Trauma: No Other PMH: Atrial fibrillation, pacemaker, hypertension, ASTHMA, hysterectomy, prolapsed bladder, fibromyalgia, CVA 2008 - Social History Smoking Status: Never smoked Constitutional: Initial Vital Signs Temperature (C) 36.6 C 08/18/17 11:18 Heart Rate 135 H 08/18/17 11:18 Respiratory Rate 18 08/18/17 11:18 Blood Pressure 153/80 H 08/18/17 11:18 O2 Sat (%) 97 08/18/17 11:18 O2 Delivery Mode [Post Nasal Cannula Procedure 4th] O2 Delivery Mode [Post Nasal Cannula Procedure 3rd] O2 Delivery Mode [Procedural Non-Rebreather Mask 2nd] O2 Delivery Mode [Procedural Non-Rebreather Mask 1st] O2 Delivery Mode Room Air O2 (L/minute) [Post Procedure 4 4th] O2 (L/minute) [Post Procedure 4 3rd] O2 (L/minute) [Procedural 2nd] 15 O2 (L/minute) [Procedural 1st] 15 Allergies/Adverse Reactions: Sulfa (Sulfonamide Antibiotics) [Sulfa(Sulfonamide Antibiotics)] Allergy (Severe , Verified 08/18/17 11:17) sulindac Allergy (Verified 08/18/17 11:17) ? steroids Allergy (Uncoded 06/01/17 18:31) Home Medications: Medication Instructions Recorded Cyanocobalamin (Vitamin B-12) 1,000 mcg SL DAILY 09/14/15 [Vitamin B-12] Herbals/Supplements -Info Only 1 ea PO DAILY 09/14/15 Aspirin [Aspirin 81mg (*)] 81 mg PO DAILY #1 tab 09/27/16 Atorvastatin Calcium [Lipitor 40 40 mg PO DAILY #30 tab 09/27/16 mg (*)] Bisoprolol Fumarate [Zebeta (*)] 5 mg PO DAILY #30 tab 09/27/16 Lisinopril [Zestril 2.5 mg (*)] 2.5 mg PO DAILY #30 tab 09/27/16 Eliquis 08/18/17 Medical Decision Making ED Course/Re-evaluation: CHIEF COMPLAINT: Atrial fibrillation. HISTORY OF PRESENT ILLNESS: This patient is an anticoagulated (Eliquis) 82 year old female with history of atrial fibrillation, hypertension, and CVA. She presents following an episode of atrial fibrillation. She states she has never had to be cardioverted before. She does not want to be admitted today. She states she is currently feeling better. This morning, she noted she was lightheaded and felt as though she was in a-fib. She denies chest pain or shortness of breath. No nausea, vomiting, or other associated symptoms. REVIEW OF SYSTEMS: A 10 point review of systems was performed and is negative with the exception of the elements mentioned in the history of present illness. PHYSICAL EXAM: HR, BP, O2 Sat, RR. Temp noted General Appearance: Alert, well hydrated, appropriate, and non-toxic appearing. Head: Atraumatic without scalp tenderness or obvious injury Eyes: Pupils equal, round, reactive to light and accommodation, EOMI, no trauma , no injection. Ears: Clear bilaterally, no perforation, normal landmarks Nose: Atraumatic, no rhinorrhea, clear. Throat: There is no erythema or exudates, no lesions, normal tonsils, mucus membranes moist. Neck: Supple, 2+ carotid upstroke, nontender, no lymphadenopathy. Respiratory: No retractions, no distress, no wheezes, and no accessory muscle use. Lungs are clear to auscultation bilaterally. Cardiovascular: Regular rate and rhythm, no murmurs, rubs, or gallops. Bilateral carotid, radial, dorsalis pedis, and posterior tibial pulses intact. Good capillary refill all extremities. Gastrointestinal: Abdomen is soft, nontender, non-distended, no masses, no rebound, no guarding, no peritoneal signs. Musculoskeletal: Normal active ROM of all extremities, atraumatic. Neurological: Alert, appropriate, and interactive. The patient has normal DTRs and non-focal cranial nerves, motor, sensory, and cerebellar exam. Skin: No rashes, good turgor, no nodules on palpation. Past medical history: Atrial fibrillation (Eliquis, metoprolol), hypertension, asthma, hysterectomy, prolapsed bladder, fibromyalgia, CVA 2009 s/p carotid stent placement Past surgical history: Pacemaker placed. Carotid stent placed. Family history: Noncontributory Social history: Retired. Lives in [place]. Security Coordinator: Dr. Kan, Dr. Steve. DIAGNOSTICS/PROCEDURES/CRITICAL CARE TIME: The 12 lead EKG was interpreted by myself. See hard copy and/or "tracemaster" electronic copy for interpretation. Atrial fibrillation, ventricular rate 160. 13:00 Procedure: Conscious sedation. Indication: Electrical cardioversion The patient is an appropriate candidate to tolerate procedural sedation. The patient's vitals signs and mental status are appropriate. The risks, benefits and alternatives of the sedation were discussed with the patient. The patient is ASA classification 1. The patient's Mallampati airway score was 1 and the patient did meet the 3-3-2 airway measurements. A time out was completed. The patient was sedated with 70mg IV Propofol. The patient was monitored with continuous pulse oximetry, hospital monitor and end tidal CO2. There were no complications and no significant hypoxemia. I performed both the sedation and the procedure. The total time I spent at the bedside during the procedural sedation was 20 minutes. The patient was examined after the procedural sedation and has returned to their pre-sedation baseline with normal vital signs and a normal examination. 13:06 Procedure: Electrical Cardioversion. Indication: Dysrhythmia. Risks, benefits, alternatives discussed with the patient and consent obtained. The patient was on a continuous hospital monitor, with airway equipment at the bedside. The patient was on continuous pulse oximetry and passive CO2 monitor. The cardioversion was performed with 150 joules biphasic current. The cardioversion was successful. The patient tolerated the procedure well with no complications. The procedure was performed by myself. Sinus 88. Atrial paced rhythms. 13:10 The 12 lead EKG was interpreted by myself. See hard copy and/or "tracemaster" electronic copy for interpretation. Sinus rhythm, rate 63. DIFFERENTIAL DIAGNOSIS: The differential diagnosis for the patient's narrow complex tachycardia included but was not limited to various causes of sinus tachycardia such as dehydration and medicines, SVT, atrial flutter, atrial fibrillation, pulmonary causes. MEDICAL DECISION MAKIN82 y/o female presents with tachycardia. Patient is in atrial fibrillation, ventricular rate 165. Plan for EKG. Plan for labs including CBC, chemistries, troponin, BNP, Mg. Plan to administer 5mg PO Metoprolol. I will be using metoprolol instead of Diltiazem for rate control since metoprolol has worked for her in the past, and she states she should be taking it but did not today. 12:40 Patient's BNP elevated at 1930. The patient will likely need to be admitted. Her heart rate remains elevated around 120. 12:45 Reassessed patient. Discussed cardioversion. She confirms that she is taking Eliquis and aspirin daily without fail. Plan for cardioversion here in the emergency department. Patient transferred to trauma bay. See procedure notes above for details. Patient's pacemaker is [employer]. Plan to contact rep for post-cardioversion pacer interrogation. 13:40 [employer] rep confirms proper functioning of the patient's pacemaker. Patient remains in sinus rhythm. Plan to discharge home in good condition. Follow up and return precautions discussed. The patient is comfortable with this plan. - Data Points Laboratory Results: Laboratory Results 08/18/17 11:59 08/18/17 11:59 08/18/17 08/18/17 11:59 11:59 WBC 7.97 10^3/uL 10^3/uL (3.80-9.50) RBC 4.94 10^6/uL 10^6/uL (4.18-5.33) Hgb 15.4 g/dL g/dL (12.6-16.3) Hct 45.0 % % (38.0-47.0) MCV 91.1 fL fL (81.5-99.8) MCH 31.2 pg pg (27.9-34.1) MCHC 34.2 g/dL g/dL (32.4-36.7) RDW 12.6 % % (11.5-15.2) Plt Count 214 10^3/uL 10^3/uL (150-400) MPV 10.4 fL fL (8.7-11.7) Neut % (Auto) 60.6 % % (39.3-74.2) Lymph % (Auto) 23.5 % % (15.0-45.0) [place] % (Auto) 12.4 % % (4.5-13.0) Eos % (Auto) 2.4 % % (0.6-7.6) Baso % (Auto) 0.8 % % (0.3-1.7) Nucleat RBC Rel Count 0.0 % % (0.0-0.2) Absolute Neuts (auto) 4.84 10^3/uL 10^3/uL (1.70-6.50) Absolute Lymphs (auto) 1.87 10^3/uL 10^3/uL (1.00-3.00) Absolute Monos (auto) 0.99 10^3/uL H 10^3/uL (0.30-0.80) Absolute Eos (auto) 0.19 10^3/uL 10^3/uL (0.03-0.40) Absolute Basos (auto) 0.06 10^3/uL 10^3/uL (0.02-0.10) Absolute Nucleated RBC 0.00 10^3/uL 10^3/uL (0-0.01) Immature Gran % 0.3 % % (0.0-1.1) Immature Gran # 0.02 10^3/uL 10^3/uL (0.00-0.10) Sodium 143 mEq/L mEq/L (135-145) Potassium 4.0 mEq/L mEq/L (3.3-5.0) Chloride 106 mEq/L mEq/L (97-110) Carbon Dioxide 23 mEq/l mEq/l (22-31) Anion Gap 14 mEq/L mEq/L (8-16) BUN 17 mg/dL mg/dL (7-23) Creatinine 1.1 mg/dL H mg/dL (0.6-1.0) Estimated GFR 48 Glucose 76 mg/dL mg/dL (70-100) Calcium 9.4 mg/dL mg/dL (8.5-10.4) Magnesium 2.0 mg/dL mg/dL (1.6-2.3) Troponin I < 0.012 ng/mL ng/mL (0.000-0.034) NT-Pro-B Natriuret Pep 1930 pg/mL H pg/mL (0-450) Medications Given: Discontinued Medications Metoprolol Tartrate (Lopressor Injection) 5 mg IVP Q5M GOPAL Stop: 08/18/17 11:56 Last Admin: 08/18/17 12:26 Dose: 5 mg Propofol (Diprivan) 70 mg IVP EDNOW ONE Stop: 08/18/17 13:28 Last Admin: 08/18/17 13:28 Dose: 70 mg Departure - Departure Disposition: Home, Routine, Self-Care Clinical Impression: Atrial fibrillation Qualifiers: Atrial fibrillation type: paroxysmal Qualified Code(s): I48.0 - Paroxysmal atrial fibrillation Condition: Good Instructions: Clive-fib (Atrial Fibrillation) (ED) Additional Instructions: 1. Follow up with your recreation program specialist this week. 2. Return to the emergency department for recurrence of symptoms, chest pain, shortness of breath, or other worsening of condition. Referrals: Cristino Steve MD [Medical Doctor] - As per Instructions Report Scribed for: Ino So Report Scribed by: Kareen Glaser Date of Report: 08/18/17 Time of Report: 11:31
--- NOTE | 2017-08-18 11:39 | CPEKG ---
Heart Rate: 160 RR Interval: 375 QRSD Interval: 72 QT Interval: 288 QTC Interval: 470 QRS [place]: -19 T Wave [place]: 16 EKG Severity - ABNORMAL ECG - EKG Impression: ATRIAL FIBRILLATION WITH RAPID V-RATE EKG Impression: BORDERLINE LEFT AXIS DEVIATION Electronically Signed By: Ino So 18-Aug-2017 13:51:28
[2017-08-18 12:11] LABS: PLATELET COUNT 214 10^3/uL (150-400)
[2017-08-18] MEDS: METOPROLOL TARTRATE 5 MG/5 ML INJ IVP SCH ×3 (12:13→12:26)
[2017-08-18] MEDS ORDERED: PROPOFOL/EMULSION 1,000 MG/100 ML BOTTLE IV ONE (13:01)
--- NOTE | 2017-08-18 13:16 | CPEKG ---
Heart Rate: 63 RR Interval: 952 P-R Interval: 140 QRSD Interval: 82 QT Interval: 388 QTC Interval: 398 P [place]: 76 QRS [place]: -13 T Wave [place]: 11 EKG Severity - ABNORMAL ECG - EKG Impression: ATRIAL-PACED COMPLEXES EKG Impression: PROBABLE LEFT ATRIAL ABNORMALITY Electronically Signed By: Ino So 18-Aug-2017 13:51:28
[2017-08-18] MEDS ORDERED: PROPOFOL 200 MG/20 ML VIAL IVP ONE (13:27)
[2017-08-18 14:36] VITALS: BP 123/71
== END 2017-08-18 14:36 | disposition home or self-care (01) ==
PROC: 5A2204Z Restoration of Cardiac Rhythm, Single (ICD-10-PCS; principal; 2017-08-18)
DX: I48.0 Paroxysmal atrial fibrillation (principal); J45.909 Unspecified asthma, uncomplicated; I10 Essential (primary) hypertension; Z79.82 Long term (current) use of aspirin; Z86.73 Personal history of transient ischemic attack (TIA), and cerebral infarction without residual deficits; Z95.0 Presence of cardiac pacemaker
CPT/HCPCS: 92960; 93005; 96374; 99152; 99285; J2704